=== PATIENT | male | born 1960 | race Caucasian/White ===

== ENCOUNTER 2021-08-10 04:20 | Emergency (ER) | payer OTHER ==
--- OUTSIDE RECORDS SUMMARY | 2021-08-10 04:25 | XMS REPORT | Continuity of Care Document ---
:1960 Author Organization [facility] t Address [address] [place] [address] Care Team Providers Name Role Phone TONY Attending Clinician Unavailable AFTAB Attending Clinician Unavailable Problems This patient has no known problems. Allergies, Adverse Reactions, Alerts This patient has no known allergies or adverse reactions. Medications This patient has no known medications. Procedures This patient has no known procedures. Encounters Start End Encounter Admission Attending Care Care Encounter Source Date/Time Date/Time Type Type Clinicians Facility Department ID 2021-08-04 2021-08-04 Outpatient [facility] [id number] 00:00:00 00:00:00 HEIDE [address] 2021-08-01 2021-08-02 [facility] [id number] 00:00:00 00:00:00 ZITA [address] 2021-07-29 2021-07-29 Outpatient [facility] [id number] 00:00:00 00:00:00 HE[address] Results This patient has no known results.
[2021-08-10] MEDS ORDERED: LIDOCAINE VISCOUS 2% SOLN 15 ML UDC ONE (05:10)
--- NOTE | 2021-08-10 06:07 | EDPHYS ---
Physician Documentation [facility] Name: Tommie Singleton Age: 60 yrs Sex: Male : 1960 Arrival Date: 08/10/2021 Time: 04:23 Bed 16 Private MD: ED Physician Gilson Razo HPI: 08/10 04:44 This 60 yrs old Male presents to ER via Unassigned with complaints of Problem With mh7 Urinary Catheter. 04:44 The patient presents with a Ceballos catheter problem, is not draining. Onset: The mh7 symptoms/episode began/occurred last night. Modifying factors: The symptoms are alleviated by nothing, the symptoms are aggravated by nothing. Associated signs and symptoms: Pertinent positives: hematuria, Pertinent negatives: abdominal pain, constipation, diarrhea, dysuria, fever, nausea, vomiting. Severity of symptoms: At their worst the symptoms were mild, last night, in the emergency department the symptoms are unchanged. Historical: - Allergies: 06:18 No Known Allergies; sv1 - Immunization history:: Adult Immunizations up to date, Client reports receiving the 2nd dose of the Covid vaccine, Last tetanus immunization: up to date. - Social history:: Smoking status: unknown. ROS: 04:44 Constitutional: Negative for fever, chills, and weight loss, Eyes: Negative for injury, mh7 pain, redness, and discharge, ENT: Negative for injury, pain, and discharge, Neck: Negative for injury, pain, and swelling, Cardiovascular: Negative for chest pain, palpitations, and edema, Respiratory: Negative for shortness of breath, cough, wheezing, and pleuritic chest pain, Abdomen/GI: Negative for abdominal pain, nausea, vomiting, diarrhea, and constipation, Back: Negative for injury and pain, MS/Extremity: Negative for injury and deformity, Skin: Negative for injury, rash, and discoloration, Neuro: Negative for headache, weakness, numbness, tingling, and seizure, Psych: Negative for depression, anxiety, suicide ideation, homicidal ideation, and hallucinations, Allergy/Immunology: Negative for hives, rash, and allergies, Endocrine: Negative for neck swelling, polydipsia, polyuria, polyphagia, and marked weight changes, Hematologic/Lymphatic: Negative for swollen nodes, abnormal bleeding, and unusual bruising. Exam: 04:44 Constitutional: This is a well developed, well nourished patient who is awake, alert, mh7 and in no acute distress. Head/Face: Normocephalic, atraumatic. Eyes: Pupils equal round and reactive to light, extra-ocular motions intact. Lids and lashes normal. Conjunctiva and sclera are non-icteric and not injected. Cornea within normal limits. Periorbital areas with no swelling, redness, or edema. Neck: Trachea midline, no thyromegaly or masses palpated, and no cervical lymphadenopathy. Supple, full range of motion without nuchal rigidity, or vertebral point tenderness. No Meningismus. Chest/axilla: Normal chest wall appearance and motion. Nontender with no deformity. No lesions are appreciated. Cardiovascular: Regular rate and rhythm with a normal S1 and S2. No gallops, murmurs, or rubs. Normal PMI, no JVD. No pulse deficits. Respiratory: Lungs have equal breath sounds bilaterally, clear to auscultation and percussion. No rales, rhonchi or wheezes noted. No increased work of breathing, no retractions or nasal flaring. Abdomen/GI: Soft, non-tender, with normal bowel sounds. No distension or tympany. No guarding or rebound. No evidence of tenderness throughout. Back: No spinal tenderness. No costovertebral tenderness. Full range of motion. Skin: Warm, dry with normal turgor. Normal color with no rashes, no lesions, and no evidence of cellulitis. MS/ Extremity: Pulses equal, no cyanosis. Neurovascular intact. Full, normal range of motion. Neuro: Awake and alert, GCS 15, oriented to person, place, time, and situation. Cranial nerves II-XII grossly intact. Motor strength 5/5 in all extremities. Sensory grossly intact. Cerebellar exam normal. Normal gait. Psych: Awake, alert, with orientation to person, place and time. Behavior, mood, and affect are within normal limits. 04:44 : CVA tenderness, is absent, Male external genitalia: normal, Bladder: is normal, mh7 Rectal exam: is refused by patient or guardian, a ceballos is noted, 3-way catheter is employed, urine is Dark blood. Vital Signs: 04:30 BP 112 / 79 LA Supine (auto/reg); Pulse 66 MON; Resp 16 S; Temp 97.4; Pulse Ox 100% on sv1 R/A; Weight 81.65 kg; Height 5 ft. 6 in. (167.64 cm); Pain 10/10; 04:30 BP 112 / 79 LA Supine (auto/reg); Pulse 66 MON; Resp 18; Temp 97.6; Pulse Ox 100% on sv1 R/A; 05:00 BP 127 / 78 LA Supine (auto/reg); Pulse 74 MON; Resp 16; Pulse Ox 100% on R/A; sv1 06:00 BP 108 / 68; Pulse 60 MON; Resp 16 S; Pulse Ox 100% on R/A; Pain 2/10; sv1 04:30 Body Mass Index 29.05 (81.65 kg, 167.64 cm) sv1 MDM: 06:04 Differential diagnosis: urinary retention, Ceballos catheter problem, urethritis. Data [facility] reviewed: vital signs, nurses notes. Data interpreted:. Counseling: I had a detailed discussion with the patient and/or guardian regarding: the historical points, exam findings, and any diagnostic results supporting the discharge/admit diagnosis, the need for outpatient follow up, a urologist, to return to the emergency department if symptoms worsen or persist or if there are any questions or concerns that arise at home. Response to treatment: the patient's symptoms have resolved after treatment, the patient's blood pressure is in an acceptable range, mental status has returned to baseline, the patient no longer shows bradycardia, the patient is not short of breath, the patient is not tachycardic, the patient's pain is gone, the patient's temperature has normalized. Response to treatment: the patient is now symptom free, patient is well hydrated. Ceballos catheter was changed. Refusal of service: The patient/guardian displays adequate decision making capability and despite a detailed discussion of alternatives, benefits, risks, and consequences refuses: all lab tests. 06:06 Patient medically screened. [facility] Administered Medications: No medications were administered Disposition Summary: 08/10/21 06:06 Discharge Ordered Location: Home [facility] Problem: an ongoing problem [facility] Symptoms: have improved [facility] Condition: Stable [facility] Diagnosis - Ceballos Catheter Malfunction [facility] Followup: [facility] - With: Private Physician - When: 1 - 2 days - Reason: Worsening of condition, Recheck today's complaints, Continuance of care, Re-evaluation by your physician Followup: [facility] - With: Kali Fall MD - When: 2 - 3 days - Reason: Worsening of condition, Recheck today's complaints Discharge Instructions: - Discharge Summary Sheet [facility] - Indwelling Urinary Catheter Insertion, Care After [facility] Forms: - Medication Reconciliation Form [facility] - Thank You Letter [facility] - Antibiotic Education [facility] - Prescription Opioid Use [facility] Signatures: Gilson Razo MD MD [facility] Dmitry Choe RN RN sv1
--- NOTE | 2021-08-10 06:40 | ER ---
Nurse's Notes [facility] Name: Tommie Singleton Age: 60 yrs Sex: Male : 1960 Arrival Date: 08/10/2021 Time: 04:23 Bed 16 Private MD: Diagnosis: Ceballos Catheter Malfunction Presentation: 08/10 04:30 Initial Sepsis Screen: Does the patient meet any 2 criteria? No. Patient's initial sv1 sepsis screen is negative. Does the patient have a suspected source of infection? No. Patient's initial sepsis screen is negative. Risk Assessment: Do you want to hurt yourself or someone else? Patient reports no desire to harm self or others. Onset of symptoms was August 10, 2021 at 02:00. 04:30 Acuity: MICK 3 sv1 06:10 Chief complaint: Patient states: lower abd pain. Ceballos clogged. Coronavirus screen: sv1 Client denies travel out of the [place] in the last 14 days. Ebola Screen: No symptoms or risks identified at this time. 06:10 Method Of Arrival: Ambulatory sv1 Triage Assessment: 06:18 General: Appears uncomfortable, well groomed, Behavior is appropriate for age, agitated.sv1 06:22 Pain: Complains of pain in pelvis Pain does not radiate. Pain at worst was 10 out of 10 sv1 on a pain scale. Historical: - Allergies: 06:18 No Known Allergies; sv1 - Immunization history:: Adult Immunizations up to date, Client reports receiving the 2nd dose of the Covid vaccine, Last tetanus immunization: up to date. - Social history:: Smoking status: unknown. Screenin:19 Abuse screen: Denies threats or abuse. Nutritional screening: No deficits noted. sv1 Tuberculosis screening: No symptoms or risk factors identified. Fall Risk None identified. No fall in past 12 months (0 pts). Assessment: 06:31 Pain: Complains of pain in abdomen. sv1 06:32 Reassessment: THE PATIENTS CHIEF COMPLAINT is lower abd pain and a clogged [address] way ceballos sv1 catheter. The catheter was irrigated and then replaced. The catheter was irrigated until the drainage was a light pink.The patient stated he feels much better. His was instructed on catheter care. . Vital Signs: 04:30 BP 112 / 79 LA Supine (auto/reg); Pulse 66 MON; Resp 16 S; Temp 97.4; Pulse Ox 100% on sv1 R/A; Weight 81.65 kg; Height 5 ft. 6 in. (167.64 cm); Pain 10/10; 04:30 BP 112 / 79 LA Supine (auto/reg); Pulse 66 MON; Resp 18; Temp 97.6; Pulse Ox 100% on sv1 R/A; 05:00 BP 127 / 78 LA Supine (auto/reg); Pulse 74 MON; Resp 16; Pulse Ox 100% on R/A; sv1 06:00 BP 108 / 68; Pulse 60 MON; Resp 16 S; Pulse Ox 100% on R/A; Pain 2/10; sv1 04:30 Body Mass Index 29.05 (81.65 kg, 167.64 cm) sv1 ED Course: 04:23 Patient arrived in ED. ja2 04:28 Dmitry Choe, KAILEY is Primary Nurse. sv1 04:29 Gilson Razo MD is Attending Physician. 7 06:05 Kali Fall MD is Referral Physician. 7 06:18 Triage completed. sv1 06:18 Arm band placed on right wrist. sv1 06:19 Patient has correct armband on for positive identification. Placed in gown. Bed in low sv1 position. Call light in reach. Side rails up X2. Adult w/ patient. 06:19 No provider procedures requiring assistance completed. Patient did not have IV access sv1 during this emergency room visit. Administered Medications: No medications were administered Outcome: 06:06 Discharge ordered by . 7 06:21 Discharged to home sv1 06:21 Condition: improved 06:22 Discharge instructions given to patient, family. sv1 06:39 Patient left the ED. sv1 Signatures: Gilson Razo MD MD [facility] Zenaida Washburn [facility] Dmitry Choe, RN RN sv1
[2021-08-10 06:45] VITALS: TEMP 97.6; O2SAT 100
[2021-08-10 06:48] VITALS: BP 108/68
== END 2021-08-10 06:39 | disposition home or self-care (01) ==
LOC: ER 04:20
DX: T83.018A Breakdown (mechanical) of other urinary catheter, initial encounter (principal)
CPT/HCPCS: 99281

== ENCOUNTER 2021-08-10 08:56 | Emergency (ER) | payer OTHER ==
--- OUTSIDE RECORDS SUMMARY | 2021-08-10 09:00 | XMS REPORT | Continuity of Care Document ---
:1960 Author Organization [facility] t Address [address] [place] [address] Care Team Providers Name Role Phone TONY [...] Clinicians Facility Department ID 2021-08-04 2021-08-04 Outpatient [facility] [id number] [address] 00:00:00 00:00:00 [address] 2021-08-01 2021-08-02 [id number] [place] 00:00:00 00:00:00 [address] 2021-07-29 2021-07-29 Outpatient [facility] [id number] 00:00:00 00:00:[address] Results This patient has no known results.
[2021-08-10 09:53] LABS: Absolute Lymphocytes (CBC) 1.8 K/uL (0.7-4.9); Hematocrit 32.5 % (39.6-49.0); Lymphocytes % 12.7 % (15.3-44.8); MPV 8.5 fL (7.6-11.3); RBC Red Blood Cell Count 3.95 M/uL (4.33-5.43)
[2021-08-10] MEDS ORDERED: NACL 0.9% IRR SOLN 2,000 ML IRR ONE (09:54)
[2021-08-10 10:09] LABS: Albumin 3.5 g/dL (3.4-5.0); Bilirubin Total 0.4 mg/dL (0.2-1.0); Potassium 4.7 mmol/L (3.5-5.1)
[2021-08-10] MEDS ORDERED: KETOROLAC 30 MG/ML INJ ONE (10:46)
[2021-08-10 10:51] LABS: Urine RBC TNTC /HPF (NONE SEEN)
[2021-08-10 10:52] LABS: Urine Bacteria <20 /HPF (NONE SEEN)
--- NOTE | 2021-08-10 11:41 | ER ---
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 No fever. Coronavirus screen: Vaccine status: Patient reports receiving the 2nd dose of the covid vaccine. Client denies travel out of the [place] in the last 14 days. At this time, the client does not indicate any symptoms associated with coronavirus-19. Ebola Screen: Patient denies travel to an Ebola-affected area in the 21 days before illness onset. Initial Sepsis Screen: Does the patient meet any 2 criteria? No. Patient's initial sepsis screen is negative. Does the patient have a suspected source of infection? Yes: Dysuria/Frequency/Urgency/UTI. Risk Assessment: Do you want to hurt yourself or someone else? Patient reports no desire to harm self or others. Onset of symptoms was August 10, 2021. 09:07 Method Of Arrival: Ambulatory ll1 09:07 Acuity: MICK 4 ll1 Triage Assessment: 09:09 General: Appears uncomfortable, Behavior is calm, cooperative, appropriate for age. ll1 Pain: Complains of pain in pelvic area Pain currently is 1 out of 10 on a pain scale. Quality of pain is described as pressure. Neuro: No deficits noted. Cardiovascular: No deficits noted. Respiratory: No deficits noted. : Reports Mendoza cath not draining properly. States he is urinating around catheter. Historical: - Allergies: 09:30 Codeine; ll1 - PMHx: 09:30 prostate problems; ll1 - PSHx: 09:30 rotator cuff SX; ll1 - Immunization history:: Client reports receiving the 2nd dose of the Covid vaccine. - Social history:: Smoking status: Patient denies any tobacco usage or history of. Screenin:25 Abuse screen: Denies threats or abuse. Denies injuries from another. Nutritional eo2 screening: No deficits noted. Tuberculosis screening: No symptoms or risk factors identified. Fall Risk None identified. Assessment: 09:49 General: Appears in no apparent distress. comfortable, Behavior is calm, cooperative. eo2 Pain: Complains of pain in bladder/ penis. 10:25 Neuro: No deficits noted. Level of Consciousness is awake, alert, obeys commands, eo2 Oriented to person, place, time, situation, Denies dizziness, headache. Cardiovascular: No deficits noted. Reports Denies chest pain, shortness of breath, Capillary refill < 3 seconds. Respiratory: Airway is patent is compromised Trachea midline Respiratory effort is even, unlabored, Respiratory pattern is regular, symmetrical, Denies shortness of breath. : Reports pain penis clogged bladder catheter post discharge from ER this morning. 11:36 Reassessment: 2000ml irrigation bag administered, pink to clear drainage, output of eo2 2050ml, leg bag placed for discharge, provided rx fo tramadol. Vital Signs: 09:07 BP 113 / 54; Pulse 70; Resp 18; Temp 97.7; Pulse Ox 100% ; Weight 88.45 kg; Height 5 ll1 ft. 10 in. (177.80 cm); Pain 1/10; 10:25 BP 123 / 63; Pulse 61; Resp 15; Pulse Ox 98% ; Pain 4/10; eo2 11:35 BP 132 / 69; Pulse 64; Resp 15; Pulse Ox 99% ; Pain 3/10; eo2 09:07 Body Mass Index 27.98 (88.45 kg, 177.80 cm) ll1 ED Course: 08:59 Patient arrived in ED. mr 09:01 Casimiro Nash MD is Attending Physician. jr11 09:06 Arm band placed on Patient placed in an exam room, on a stretcher. ll1 09:09 Triage completed. ll1 09:32 Chantel Mcconnell, KAILEY is Primary Nurse. eo2 09:48 Patient has correct armband on for positive identification. Pulse ox on. NIBP on. Door eo2 closed. Noise minimized. 09:48 CBC with Automated Diff Sent. eo2 09:48 Comprehensive Metabolic Panel Sent. eo2 09:48 No provider procedures requiring assistance completed. Inserted saline lock: 22 gauge eo2 in right antecubital area, using aseptic technique. Blood collected. 10:[address] Dalton called on his cell phone at [phone] and connected eb with Dr. Nash for patient consultation. 11:39 IV discontinued, intact. eo2 Administered Medications: 10:20 Drug: NS bladder irrigation 1L 1000 ml Route: Mucous Membrane; eo2 11:13 Follow up: Urine output 2000 ml; Response: No adverse reaction; irrigated with 2000ml eo2 10:56 Drug: Ketorolac 15 mg Route: IVP; Site: right antecubital; eo2 11:13 Follow up: Response: No adverse reaction; Pain is decreased eo2 Intake: Output: 11:13 Urine: 2000ml; Total: 2000ml. eo2 Outcome: 11:04 Discharge ordered by . jr11 11:39 Discharged to home ambulatory, with family. eo2 11:39 Condition: stable 11:39 Discharge instructions given to patient, Instructed on discharge instructions, follow up and referral plans. medication usage, Demonstrated understanding of instructions, follow-up care, medications, Prescriptions given X 1. 11:40 Patient left the ED. 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 ll1 09:31 09:07 Allergies: No Known Allergies; ll1 ll1 10:40 10:39 Urinalysis drawn and sent. eo2 EDMS
--- NOTE | 2021-08-10 11:41 | EDPHYS ---
Physician Documentation [facility] Name: Tommie Singleton Age: 60 yrs Sex: Male : 1960 Arrival Date: 08/10/2021 Time: 08:59 Bed 20 Private MD: ED Physician Casimiro Nash HPI: 08/10 09:36 This 60 yrs old Male presents to ER via Ambulatory with complaints of Problem jr11 With Urinary Catheter. 09:36 The patient presents with urinary symptoms, retention, Pt was here at 0400, FTG jr11 clotted, irrigated, then clotted again after DC, no pain currently . Onset: The symptoms/episode began/occurred just prior to arrival. Modifying factors: The symptoms are alleviated by nothing, the symptoms are aggravated by nothing. Associated signs and symptoms: Pertinent negatives: abdominal pain, dysuria, fever. Severity of symptoms: At their worst the symptoms were severe, in the emergency department the symptoms are unchanged. Patient is a 60-year-old with history of prostate cancer, has intermittently had a Mendoza for months, last time he had his Mendoza change was this morning, after it clotted. Patient has had intermittent hematuria as well. Patient sees Dr. Dalton from [place] and also started seeing Antonino gordon at [facility] for potential surgery to get his prostate out. Patient has an appointment on Wednesday.. Historical: - Allergies: 09:30 Codeine; ll1 - PMHx: 09:30 prostate problems; ll1 - PSHx: 09:30 rotator cuff SX; ll1 - Immunization history:: Client reports receiving the 2nd dose of the Covid vaccine. - Social history:: Smoking status: Patient denies any tobacco usage or history of. ROS: 09:36 Constitutional: Negative for fever, chills Eyes: Negative for injury, pain, redness, jr11 and discharge, ENT: Negative for injury, pain, and discharge, Cardiovascular: Negative for chest pain, palpitations, and edema, Respiratory: Negative for shortness of breath, cough Abdomen/GI: Negative for abdominal pain, nausea, vomiting Back: Negative for injury and pain, MS/Extremity: Negative for injury and deformity, Skin: Negative for injury, rash, and discoloration, Neuro: Negative for headache, weakness, numbness, tingling, and seizure, Allergy/Immunology: Negative for hives, rash, and allergies. Exam: 09:36 Constitutional: This is a well developed, well nourished patient who is awake, alert, jr11 and in no acute distress. Head/Face: Normocephalic, atraumatic. Eyes: Extra-ocular motions intact. Lids and lashes normal. Conjunctiva and sclera are non-icteric and not injected. Cornea within normal limits. Periorbital areas with no swelling, redness, or edema. ENT: Nares patent. No nasal discharge, no septal abnormalities noted. Oropharynx with no redness, swelling, or masses, exudates, or evidence of obstruction, uvula midline. Mucous membranes moist. Chest/axilla: Normal chest wall appearance and motion. Nontender with no deformity. No lesions are appreciated. Cardiovascular: Regular rate and rhythm with a normal S1 and S2. No gallops, murmurs, or rubs. Normal PMI, no JVD. No pulse deficits. Respiratory: Lungs have equal breath sounds bilaterally, clear to auscultation and percussion. No rales, rhonchi or wheezes noted. No increased work of breathing, no retractions or nasal flaring. Abdomen/GI: Soft, non-tender, with normal bowel sounds. No distension or tympany. No guarding or rebound. No evidence of tenderness throughout. Skin: Warm, dry with normal turgor. Normal color with no rashes, no lesions, and no evidence of cellulitis. MS/ Extremity: Pulses equal, no cyanosis. Neurovascular intact. Full, normal range of motion. Vital Signs: 09:07 BP 113 / 54; Pulse 70; Resp 18; Temp 97.7; Pulse Ox 100% ; Weight 88.45 kg; Height 5 ll1 ft. 10 in. (177.80 cm); Pain 1/10; 10:25 BP 123 / 63; Pulse 61; Resp 15; Pulse Ox 98% ; Pain 4/10; eo2 11:35 BP 132 / 69; Pulse 64; Resp 15; Pulse Ox 99% ; Pain 3/10; eo2 09:07 Body Mass Index 27.98 (88.45 kg, 177.80 cm) ll1 MDM: 09:18 Patient medically screened. [facility] 09:36 Differential diagnosis: UTI, urinary retention, Mendoza catheter problem. Data reviewed: jr11 vital signs, nurses notes, lab test result(s). ED course: Patient is a 60-year-old with prostate cancer, hematuria, intermittently over weeks to months. Will irrigate bladder with a liter of normal saline, if he still passing clots or bleeding, will speak to urology.. 10:52 ED course: [facility], send to [facility] to have him TURP, concern her will clot jr11 again, if bladder full of clot, may clot again. Will give patient choice. . 08/10 09:27 Order name: CBC with Automated Diff; Complete Time: 10:31 EDOR 08/10 09:27 Order name: Comprehensive Metabolic Panel; Complete Time: 10: EDOR 08/10 09:27 Order name: Urine Microscopic Only; Complete Time: 11:05 EDOR 08/10 09:22 Order name: Bladder Irrigation; Complete Time: 10:17 [facility] 08/10 10:54 Order name: Urine Culture EDMS Administered Medications: 10:20 Drug: NS bladder irrigation 1L 1000 ml Route: Mucous Membrane; eo2 11:13 Follow up: Urine output 2000 ml; Response: No adverse reaction; irrigated with 2000ml eo2 10:56 Drug: Ketorolac 15 mg Route: IVP; Site: right antecubital; eo2 11:13 Follow up: Response: No adverse reaction; Pain is decreased eo2 Disposition Summary: 08/10/21 11:04 Discharge Ordered Location: Home [facility] Condition: Stable jr11 Diagnosis - Gross hematuria jr11 Followup: jr11 - With: Private Physician - When: 1 - 2 days - Reason: If symptoms return, Please follow up with Dr Mccray Discharge Instructions: - Discharge Summary Sheet jr11 - Hematuria, Adult jr11 Forms: - Medication Reconciliation Form jr11 - Thank You Letter jr11 - Antibiotic Education jr11 - Prescription Opioid Use jr11 Prescriptions: - Tramadol 50 mg Oral Tablet - take 1 tablet by ORAL route every 8 hours as needed; 12 tablet; Refills: 0, jr11 Product Selection Permitted Signatures: Dispatcher [employer] Angel Figueroa RN RN ll1 Chantel Mcconnell RN RN eo2 Casimiro Nash MD MD jr11 Corrections: (The following items were deleted from the chart) 09: 09:07 Allergies: No Known Allergies; ll1 ll1 10:40 10:28 Urinalysis ordered. EDMS EDMS
[2021-08-10 11:46] VITALS: TEMP 97.7
[2021-08-10 11:49] VITALS: BP 132/69; O2SAT 99
== END 2021-08-10 11:40 | disposition home or self-care (01) ==
LOC: ER 08:56
DX: R31.0 Gross hematuria (principal); Z85.46 Personal history of malignant neoplasm of prostate; Z88.5 Allergy status to narcotic agent
CPT/HCPCS: 36415; 80053; 81015; 85025; 87086; 87088; 96374; 99284